=== PATIENT | female | born 1940 | race Caucasian/White ===

== ENCOUNTER 2018-03-19 11:58 | Outpatient (CLI) | payer MEDICARE, OTHER | END 2018-03-19 11:59 | disposition critical access hospital (66) | LOC: EMS 11:58 | PROVIDERS: ATTEND Surgery | DX: R42 Dizziness and giddiness (principal); R07.9 Chest pain, unspecified; M25.532 Pain in left wrist; V47.5XXA Car driver injured in collision with fixed or stationary object in traffic accident, initial encounter; Y92.414 Local residential or business street as the place of occurrence of the external cause | CPT/HCPCS: A0425; A0429 ==

== ENCOUNTER 2018-03-19 12:05 | Emergency (ER) | payer OTHER, MEDICARE ==
[2018-03-19 12:12] VITALS: BP 165/98
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
== END 2018-03-19 14:10 | disposition home or self-care (01) ==
LOC: EDUNIT# → ED 12:05
DX: F17.200 Nicotine dependence, unspecified, uncomplicated (principal); S20.219A Contusion of unspecified front wall of thorax, initial encounter; S63.502A Unspecified sprain of left wrist, initial encounter; S52.515A Nondisplaced fracture of left radial styloid process, initial encounter for closed fracture; V89.2XXA Person injured in unspecified motor-vehicle accident, traffic, initial encounter; Y92.410 Unspecified street and highway as the place of occurrence of the external cause
CPT/HCPCS: 99283

== ENCOUNTER 2018-12-30 11:47 | Outpatient (CLI) | payer MEDICARE, OTHER ==
--- NOTE | 2018-12-30 12:26 | XRAY Report ---
Reason: OTHER FATIGUE,PALPITATIONS Procedure Date: 12/30/2018 Accession Number: [id number] / [id number] Procedure: XR - Chest 2 View X-Ray CPT Code: 77991 FULL RESULT: EXAM: CHEST RADIOGRAPHY EXAM DATE: 12/30/2018 11:58 AM. CLINICAL HISTORY: Chronic fatigue, cough and shortness of breath COMPARISON: None. TECHNIQUE: 2 views. FINDINGS: Lungs/Pleura: No focal opacities evident. No pleural effusion. No pneumothorax. Normal volumes. Mediastinum: Heart and mediastinal contours are unremarkable. Other: Moderate S-shaped thoracolumbar scoliosis. IMPRESSION: No acute cardiopulmonary abnormality. RADIA
== END 2018-12-30 11:48 | disposition home or self-care (01) ==
LOC: DI 11:47
PROVIDERS: ATTEND Internal Medicine
DX: R53.83 Other fatigue (principal); R00.2 Palpitations
CPT/HCPCS: 71046

== ENCOUNTER 2020-10-15 12:35 | Emergency (ER) | payer MEDICARE, OTHER ==
[2020-10-15] MEDS ORDERED: IOVERSOL 320 100 ML VIAL IVP ONE ×2 (12:36→13:02)
--- NOTE | 2020-10-15 12:45 | ED Physician Documentation ---
History of Present Illness - Stated complaint Stated Complaint: slurred speech, droopy face - Chief complaint Chief Complaint: Neuro - History obtained from History obtained from: Patient - Additonal information Additional information: 80-year-old woman with past medical history of neuropathy on gabapentin, bilateral hip replacements presents with left facial droop upon waking this morning, slurring of speech, and limb weakness. The limb weakness is resolved however the facial droop is still present. Last seen normal yesterday evening when she went to bed. Stroke code called on arrival. further initial history limited by patient acuity. Review of Systems Unable to obtain: Other (patient acuity) PD PAST MEDICAL HISTORY - Past Surgical History Ortho: Hip replacement - Present Medications Home Medications: Ambulatory Orders Medication Instructions Recorded Confirmed Gabapentin [Neurontin] 100 mg PO TID 10/15/20 10/15/20 - Allergies Allergies/Adverse Reactions: Allergies Allergy/AdvReac Type Severity Reaction Status Date / Time No Known Drug Allergies Allergy Verified 10/15/20 12:40 - Social History Does the pt smoke?: Yes Smoking Status: Current every day smoker Does the pt drink ETOH?: No Does the pt have substance abuse?: No PD ED PE NORMAL - Vitals Vital signs reviewed: Yes - General General: Alert and oriented X 3, No acute distress, Well developed/nourished - HEENT HEENT: Atraumatic, PERRL, EOMI, Pharynx benign - Neck Neck: Supple, no meningeal sign - Cardiac Cardiac: RRR - Respiratory Respiratory: No respiratory distress, Clear bilaterally - Abdomen Abdomen: Non tender, Non distended - Derm Derm: Normal color, Warm and dry - Extremities Extremities: No deformity - Neuro Neuro: Alert and oriented X 3, Other (L facial droop. moderate dysarthria. mild aphasia. NIHSS 4. 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0 PT 12.0 INR 1.1 APTT 30.7 Sodium 139 Potassium 3.8 Chloride 103 Carbon Dioxide 27 Anion Gap 9.0 BUN 15 Creatinine 0.7 Estimated GFR (MDRD) 81 L Glucose 129 H Calcium 10.1 Total Bilirubin 0.7 AST 24 ALT 22 Alkaline Phosphatase 55 Troponin I High Sens Total Protein 7.7 Albumin 4.5 Globulin 3.2 Albumin/Globulin Ratio 1.4 Lipase 26 Nasal Adenovirus (PCR) Nasal B. parapertussis DNA (PCR) Nasal Coronavir 229E PCR Nasal Coronavir HKU1 PCR Nasal Coronavir NL63 PCR Nasal Coronavir OC43 PCR Nasal Enterovir/Rhinovir PCR Nasal Influenza B PCR Nasal Influenza A PCR Nasal Parainfluen 1 PCR Nasal Parainfluen 2 PCR Nasal Parainfluen 3 PCR Nasal Parainfluen 4 PCR Nasal RSV (PCR) Nasal B.pertussis DNA PCR Nasal C.pneumoniae (PCR) Rolan Human Metapneumo PCR Nasal M.pneumoniae (PCR) Nasal SARS-CoV-2 (PCR) 10/15/20 10/15/20 12:40 13:25 WBC RBC Hgb Hct MCV MCH MCHC RDW Plt Count MPV Neut # (Auto) Lymph # (Auto) [place] # (Auto) Eos # (Auto) Baso # (Auto) Absolute Nucleated RBC Nucleated RBC % PT INR APTT Sodium Potassium Chloride Carbon Dioxide Anion Gap BUN Creatinine Estimated GFR (MDRD) Glucose Calcium Total Bilirubin AST ALT Alkaline Phosphatase Troponin I High Sens 4.1 Total Protein Albumin Globulin Albumin/Globulin Ratio Lipase Nasal Adenovirus (PCR) NOT DETECTED Nasal B. parapertussis DNA (PCR) NOT DETECTED Nasal Coronavir 229E PCR NOT DETECTED Nasal Coronavir HKU1 PCR NOT DETECTED Nasal Coronavir NL63 PCR NOT DETECTED Nasal Coronavir OC43 PCR NOT DETECTED Nasal Enterovir/Rhinovir PCR NOT DETECTED Nasal Influenza B PCR NOT DETECTED Nasal Influenza A PCR NOT DETECTED Nasal Parainfluen 1 PCR NOT DETECTED Nasal Parainfluen 2 PCR NOT DETECTED Nasal Parainfluen 3 PCR NOT DETECTED Nasal Parainfluen 4 PCR NOT DETECTED Nasal RSV (PCR) NOT DETECTED Nasal B.pertussis DNA PCR NOT DETECTED Nasal C.pneumoniae (PCR) NOT DETECTED Rolan Human Metapneumo PCR NOT DETECTED Nasal M.pneumoniae (PCR) NOT DETECTED Nasal SARS-CoV-2 (PCR) NOT DETECTED PD MEDICAL DECISION MAKING - ED course ED course: 12:45pm - patient in CT now. she states she had LE weakness before which has improved. relative contraindication to tpa given improvement. also patient is W US therefore outside window for TPA. will c/s with telestroke doc re: possibility of thrombectomy. Initial NIHSS 4 (dysarthria, aphasia, facial droop). 1pm - d/w Dr. Leo (neurology) - agrees not a candidate for tPA given outside window. she will review her ct angiography and call back. 1:14pm - d/w Dr Leo - CTA head/neck without large vessel occlusion. not a thrombectomy candidate. 2pm - dysarthria resolved. facial droop improved. still with word finding difficulty. NIHSS 2 2:45pm - d/w Dr. Cox, neurologist at [facility] . given that we do not have mri or neurologist here, we will transfer to [facility] ([place], [place]) for neuro workup. d/w hospitalist Dr. Moreno and she will go to . Departure - Departure Disposition: 02 Transfer Acute Care Hosp Clinical Impression: Stroke, Dysarthria, Aphasia, Facial droop Condition: Good
[2020-10-15 12:52] LABS: BASOPHILS % (AUTO) 0.5 %; EOSINOPHILS % (AUTO) 0.7 %; HGB - HEMOGLOBIN 13.6 g/dL (12.0-16.0); LYMPHOCYTES % (AUTO) 16.8 %; MEAN CORPUSCULAR HEMOGLOBIN 31.8 pg (27.0-31.0); MEAN CORPUSCULAR HGB CONC 32.7 g/dL (32.0-36.0); MEAN CORPUSCULAR VOLUME 97.2 fL (81.0-99.0); MEAN PLATELET VOLUME 9.9 fL (7.9-10.8); MONOCYTES # (AUTO) 0.4 10^3/uL (0.0-1.0); MONOCYTES % (AUTO) 6.7 %; NEUTROPHILS # (AUTO) 4.4 10^3/uL (1.5-6.6); NEUTROPHILS % (AUTO) 75.1 %; PLT - PLATELET COUNT 246 10^3/uL (130-450); RED BLOOD COUNT 4.28 10^6/uL (4.20-5.40); RED CELL DISTRIBUTION WIDTH 13.2 % (12.0-15.0); WHITE BLOOD COUNT 5.8 x10^3/uL (4.8-10.8)
[2020-10-15 12:57] LABS: INR 1.1 (0.8-1.2)
[2020-10-15 13:00] LABS: ALBUMIN 4.5 g/dL (3.2-5.5); ALBUMIN/GLOBULIN RATIO 1.4 (1.0-2.2); BILIRUBIN,TOTAL 0.7 mg/dL (0.2-1.0); CALCIUM 10.1 mg/dL (8.5-10.3); CREATININE 0.7 mg/dL (0.4-1.0); TOTAL PROTEIN 7.7 g/dL (6.7-8.2)
[2020-10-15 13:04] LABS: PARTIAL THROMBOPLASTIN TIME 30.7 secs (24.9-33.3)
--- NOTE | 2020-10-15 13:10 | CT Report ---
PROCEDURE: ANGIO HEAD W/WO INDICATIONS: stroke CONTRAST: IV CONTRAST: Optiray 320 ml: 80 PO CONTRAST: *NO PO CONTRAST TECHNIQUE: Precontrast 4.5 mm thick angled axial sections acquired from the foramen magnum to the vertex. Afte r the administration of intravenous contrast, 1 mm thick sections acquired through the [place] of [place] is. Postcontrast 4.5 mm thick sections then re-acquired from the foramen magnum to the vertex. 3-di mensional mofbcsk-daetofrvx-tpwlmoyool (MIP) and/or volume rendering reformats were acquired of the c entral intracranial vasculature. For radiation dose reduction, the following was used: automated ex posure control, adjustment of mA and/or kV according to patient size. COMPARISON: Correlation is made with the accompanying neck CT angiogram, 10/15/2020 FINDINGS: Image quality: Excellent. Anterior circulation: Intracranial internal carotid arteries are normal in size and flow. The flow within the paired anterior cerebral arteries is normal and symmetric. The flow within the middle cer ebral arteries is normal and symmetric. The anterior communicating artery is not well seen. No aneu rysms are seen. Posterior circulation: Visualized portions of the vertebral arteries demonstrate normal generalized atherosclerotic calcification, with approximately 40% narrowing seen involving each before segment. T he vertebral arteries join to form a normal appearing basilar artery. Flow within the posterior cere bral arteries is normal and symmetric. No aneurysms are seen. CSF spaces: Ventricles are normal in size and shape. Basal cisterns are patent. No extra-axial flu id collections. Brain: No midline shift. No intracranial bleeds or masses. Ambriz-white matter interface appears int act. Skull and face: Calvarium and facial bones appear intact, without suspicious lesions. Sinuses: Visualized sinuses and mastoids are clear. IMPRESSION: No significant intracranial abnormality is seen. No intracranial hemorrhage is seen. No significant intracranial arterial abnormalities are seen. No masses or abnormal enhancement can be seen. Reviewed by: Mohit Lagunas MD on 10/15/2020 12:09 PM [facility] Approved by: Mohit Lagunas MD on 10/15/2020 12:09 PM [facility] Station ID: [id number]
--- NOTE | 2020-10-15 13:12 | CT Report ---
PROCEDURE: ANGIO NECK W INDICATIONS: stroke CONTRAST: IV CONTRAST: Optiray 320 ml: 80 PO CONTRAST: *NO PO CONTRAST TECHNIQUE: After the administration of intravenous contrast, 1.5 mm axial sections acquired from the aortic arch to the [place] of [place]. Coronal 3-D maximum intensity projection (MIP) and/or volume rendering ref ormats were then performed. For radiation dose reduction, the following was used: automated exposur e control, adjustment of mA and/or kV according to patient size. COMPARISON: Correlation is made with the accompanying head CT atrium, one 3021 FINDINGS: Image quality: Excellent. Carotid system: The great vessels demonstrate a conventional anatomy as they arise from the aortic a rch. The origins of the common carotid arteries appear patent. The common carotid arteries demonstr ate normal calibers and courses. The bifurcation regions appear normal bilaterally. The internal ca rotid arteries demonstrate normal caliber and course. Posterior circulation: The origins of the vertebral arteries appear patent. The more superior porti ons of the vertebral arteries demonstrate normal course and caliber. They join to form a normal appe aring basilar artery. Soft tissues: Visualized neck soft tissues demonstrate no suspicious abnormalities. The thyroid gla nd is normal in size. Bones: No suspicious bony lesions. Visualized cervical spine appears normally aligned. At least mo derate cervical spine degenerative changes are seen. IMPRESSION: No hemodynamically significant stenosis can be seen within the arteries of the neck. Cervical spine degenerative change noted. The estimate of stenosis included in the report of the imaging study was calculated using the NASCET method Reviewed by: Mohit Lagunas MD on 10/15/2020 12:10 PM [facility] Approved by: Mohit Lagunas MD on 10/15/2020 12:10 PM [facility] Station ID: [id number]
[2020-10-15] MEDS ORDERED: ASPIRIN 325 MG TABLET PO STA (14:19)
[2020-10-15] MEDS ORDERED: ATORVASTATIN 40 MG TABLET PO STA (14:20)
[2020-10-15] MEDS ORDERED: LOSARTAN 50 MG TABLET PO STA (14:20)
[2020-10-15 14:42] LABS: C. PNEUMONIAE- RESP PCR PANEL NOT DETECTED
[2020-10-15 17:33] VITALS: BP 125/83
== END 2020-10-15 17:53 | disposition short-term general hospital (02) ==
LOC: ED 12:35
DX: I63.9 Cerebral infarction, unspecified (principal); R47.01 Aphasia; R47.1 Dysarthria and anarthria; R29.810 Facial weakness; R29.704 NIHSS score 4; Z20.822 Contact with and (suspected) exposure to COVID-19; G62.9 Polyneuropathy, unspecified; Z96.643 Presence of artificial hip joint, bilateral; F17.200 Nicotine dependence, unspecified, uncomplicated
CPT/HCPCS: 36415; 70496; 70498; 80053; 83690; 84484; 85025; 85610; 85730; 87631; 93005; 99285; A9270; Q9967; 0202U